=== PATIENT | female | born 1975 | race American Indian/Alaskan Native ===

== ENCOUNTER 2017-05-23 17:48 | Emergency (ER) | payer SELFPAY ==
[2017-05-24] MEDS ORDERED: TOPROL XL PO ONE (05:45)
--- NOTE | 2017-05-24 05:46 | Emergency Department Report ---
Minor Respiratory - HPI Chief Complaint: Upper Respiratory Infection Stated Complaint: CHEST CONGESTION, FEVER, SORETHROAT Time Seen by Provider: 05/24/17 05:18 Duration: 4 Days Pain Location: Throat Severity: moderate Minor Respiratory: Yes Rhinorrhea, Yes Sore Throat, Yes Able to Tolerate Fluids , Yes Cough, Yes Sick Contacts, Yes Shortness of Breath (history of asthma, using albuterol q4h), Yes Fever, No Ear Pain, No Hemoptysis, No Chest Pain Other History: This is a 41 y.o. female presents with fever, congestion, sore throat, and body aches for 4 days. Patient reports having to use albuterol inhaler every 4 hours for SOB. She is taking mucinex and theraflu with minimal improvement. She have a history of HTN and asthma. She did not take metoprolol last night because she was in ER. Denies chest pain, abdominal pain, headach, ear pain, and nausea, and vomiting. ED Review of Systems ROS: Stated complaint: CHEST CONGESTION, FEVER, SORETHROAT Other details as noted in HPI Constitutional: see HPI, chills, fever. denies: diaphoresis, malaise, weakness ENT: throat pain, congestion. denies: ear pain, dental pain, hearing loss, epistaxis Respiratory: cough, SOB with exertion, wheezing. denies: orthopnea Cardiovascular: denies: chest pain, palpitations Gastrointestinal: denies: abdominal pain, nausea, diarrhea Musculoskeletal: denies: back pain, joint swelling, arthralgia Neurological: denies: headache, weakness, paresthesias ED Past Medical Hx - Past Medical History Previous Medical History?: Yes Hx Hypertension: Yes - Surgical History Past Surgical History?: Yes Additional Surgical History: PARTIAL HYSTERECTOMY - Social History Smoking Status: Former Smoker Substance Use Type: Alcohol, Prescribed - Medications Home Medications: Home Medications Medication Instructions Recorded Confirmed Last Taken Type Cyclobenzaprine HCl [Flexeril 5 MG 5 mg PO Q6HR #20 tablet 10/31/14 Unknown Rx TAB] Furosemide [Lasix] 20 mg PO QDAY 10/31/14 10/31/14 10/30/14 History Ibuprofen [Motrin 800 MG tab] 800 mg PO Q8HR PRN #20 tablet 10/31/14 Unknown Rx Metoprolol Xl [Metoprolol 50 mg PO QDAY 10/31/14 10/31/14 10/30/14 History SUCCINATE] Potassium Chloride 10 meq PO QDAY 10/31/14 10/31/14 10/30/14 History Azithromycin [Zithromax Z-STEVE] 250 mg PO DAILY #6 tablet 05/24/17 Unknown Rx Benzonatate 200 mg PO TID PRN #30 capsule 05/24/17 Unknown Rx Minor Respiratory Exam - Exam General: Vital signs noted. No distress. Alert and acting appropriately. HEENT: Yes Pharyngeal Erythema, Yes Moist Mucous Membranes, Yes Rhinorrhea, No Pharyngeal Exudates, No Conjuctival Injection, No Frontal Tenderness, No Maxillary Tenderness Ear: Neither TM Bulge, Neither TM Erythema, Neither EAC Pain, Neither EAC Discharge Neck: Yes Supple, No Adenopathy Lungs: Yes Wheezes (expiratory), Yes Cough, No Good Air Exchange, No Ronchi, No Stridor, No Labored Respirations, No Retractions, No Use of Accessory Muscles, No Other Abnormal Lung Sounds Heart: Yes Regular, No Murmur Abdomen: Yes Normal Bowel Sounds, No Tenderness, No Peritoneal Signs Skin: No Rash, No Edema Neurologic: Alert and oriented, no deficits. Musculoskeletal: Unremarkable. ED Course Vital Signs 05/23/17 19:02 Temperature 99.4 F Pulse Rate 98 H Respiratory 20 Rate Blood Pressure 167/107 O2 Sat by Pulse 98 Oximetry Vital Signs 05/23/17 05/24/17 05/24/17 19:02 06:25 06:42 Temperature 99.4 F 99.4 F Pulse Rate 98 H 89 88 Respiratory 20 17 Rate Blood Pressure 167/107 154/88 Blood Pressure 154/88 [Left] O2 Sat by Pulse 98 98 Oximetry ED Medical Decision Making - Medical Decision Making This is a 41 y.o. female with cough, fever, congestion, sore throat, and body aches for 4 days. History of HTN and asthma. Missed metoprolol dose because she was in ER. She is using inhaler Q4H, taking mucinex, and theraflu. Denies chest pain, abdominal pain, headache, ear pain, and nausea, and vomiting. Given metoprolol XL 50 mg once in ER. Blood Pressure trending down. Encouraged to stop taking OTC cold and flu medicine, will cause elevation in BP. Start taking coricidin HBP. Discharged home and treat outpatient for bronchitis. Discharged home in stable condition with azithromycin and benzonatate. Referred to [facility] for f/u. Critical care attestation.: If time is entered above; I have spent that time in minutes in the direct care of this critically ill patient, excluding procedure time. ED Disposition Clinical Impression: Bronchitis Disposition: DC- TO HOME OR SELFCARE Is pt being admited?: No Does the pt Need Aspirin: No Condition: Stable Instructions: Chronic Bronchitis (ED) Additional Instructions: Take medication as prescribed. Drink fluids to prevent dehydration. Follow up with Primary Care Provider. Return to ER if SOB, chest pain, wheezing, and fever. Prescriptions: Azithromycin [Zithromax Z-STEVE] 250 mg PO DAILY #6 tablet Benzonatate 200 mg PO TID PRN #30 capsule PRN Reason: Cough Referrals: [facility] [Outside] - 3-5 Days [facility] [Outside] - 3-5 Days [facility] [Outside] - 3-5 Days Forms: Work/School Release Form(ED) Time of Disposition: 06:51 Print Language: MALAYSIAN
[2017-05-24 06:42] VITALS: BP 154/88
== END 2017-05-24 07:00 | disposition home or self-care (01) ==
LOC: ED 17:48
DX: J40 Bronchitis, not specified as acute or chronic (principal); I10 Essential (primary) hypertension; Z90.710 Acquired absence of both cervix and uterus; Z87.891 Personal history of nicotine dependence; Z88.1 Allergy status to other antibiotic agents; Z88.0 Allergy status to penicillin
CPT/HCPCS: 99282

== ENCOUNTER 2017-08-07 11:57 | Outpatient (CLI) | payer BC ==
--- NOTE | 2017-08-07 13:44 | Mammography Report ---
BILATERAL MAMMOGRAM: FINDINGS: There are scattered fibroglandular densities (approximately 25%-50% glandular). No mass, distortion, suspicious calcification, or skin change is seen. There are no significant changes when compared to her prior exam in November 2014. CAD was utilized. IMPRESSION: Negative mammogram. There is no mammographic evidence of malignancy. RECOMMENDATION: Follow-up per ACS guidelines. BI-RADS CATEGORY: 1 = Negative ACR BI-RADS MAMMOGRAPHIC CODES: 0 = Needs additional imaging evaluation; 1 = Negative; 2 = Benign; 3 = Probably benign; 4 = Suspicious; 5 = Malignant; 6 = Known biopsy-proven malignancy COMMENT: 1. Dense breast tissue, i.e., adenosis, fibrocystic changes, etc., may obscure an underlying neoplasm. 2. Approximately 10% of cancers are not detected with mammography. 3. A negative mammography report should not delay biopsy if a clinically suspicious mass is present. COMMENT: Patient follow-up letters are generated in [employer].
== END 2017-08-07 11:58 | disposition home or self-care (01) ==
LOC: SPVWC 11:57
DX: Z12.31 Encounter for screening mammogram for malignant neoplasm of breast (principal)
CPT/HCPCS: 77067